=== PATIENT | male | born 1975 | race American Indian/Alaskan Native ===

== ENCOUNTER 2016-09-16 12:44 | Emergency (ER) | payer OTHER ==
[2016-09-16] MEDS ORDERED: FLEXERIL PO ONE (17:33)
[2016-09-16] MEDS ORDERED: TORADOL IM ONE (17:33)
[2016-09-16 17:59] VITALS: BP 134/78
--- NOTE | 2016-09-16 18:23 | Emergency Department Report ---
HPI - General Chief Complaint: Extremity Problem,Nontraumatic Time Seen by Provider: 09/16/16 17:32 - HPI HPI: 41-year-old male presents today with lower back pain radiating down his right leg times one month. Denies history of similar symptoms. Denies injury or trauma. Patient states that his job requires lifting and that may be associated. Describes his pain as 8 out of 10 constant, throbbing ache. Denies bowel or bladder incontinence. Denies numbness, weakness, paresthesias. He tried ibuprofen with relief. Denies fever, chills, nausea, vomiting, chest pain, shortness of breath, abdominal pain, urinary symptoms. ED Past Medical Hx - Past Medical History Previous Medical History?: No - Surgical History Past Surgical History?: No - Social History Smoking Status: Never Smoker Substance Use Type: Alcohol - Medications Home Medications: Home Medications Medication Instructions Recorded Confirmed Last Taken Type Cyclobenzaprine [Flexeril] 10 mg PO TID PRN #20 tablet 09/16/16 Unknown Rx Naproxen [Naprosyn] 500 mg PO BID #30 tablet 09/16/16 Unknown Rx ED Review of Systems ROS: Stated complaint: SEVERE IN RIGHT LEG Other details as noted in HPI Constitutional: denies: chills, fever, malaise Eyes: denies: eye pain ENT: denies: ear pain, throat pain, congestion Respiratory: denies: cough, shortness of breath, wheezing Cardiovascular: denies: chest pain, palpitations Endocrine: no symptoms reported Gastrointestinal: denies: abdominal pain, nausea, vomiting Musculoskeletal: back pain Neurological: denies: headache, weakness, numbness, paresthesias Physical Exam - Physical Exam Vital Signs: Vital Signs 09/16/16 09/16/16 13:00 17:00 Temperature 97.5 F L 98.6 F Pulse Rate 60 78 Respiratory 18 15 Rate Blood Pressure 130/84 Blood Pressure 134/78 [Left] O2 Sat by Pulse 100 99 Oximetry Physical Exam: GENERAL: The patient is well-developed and well-nourished. Patient is in NAD. HEAD: Normocephalic. Atraumatic. CHEST/LUNGS: Clear to auscultation throughout. HEART/CARDIOVASCULAR: Regular rate and rhythm. No murmurs, rubs or gallops. ABDOMEN: Abdomen is soft, nontender. Bowel sounds normoactive. No guarding or rebound tenderness. Negative for CVA tenderness bilaterally. BACK: Full ROM. No midline or paraspinal tenderness to palpation. Tenderness to palpation of the right sciatic notch. Negative straight leg raise bilaterally. RIGHT LOWER EXTREMITY: Full range of motion. No tenderness to palpation. Peripheral pulses intact. Capillary refill less than 2 seconds. EXTREMITIES:Peripheral pulses intact. Capillary refill less than 2 seconds. NEURO: Alert and oriented x 3. Normal gait. ED Course Vital Signs 09/16/16 09/16/16 13:00 17:00 Temperature 97.5 F L 98.6 F Pulse Rate 60 78 Respiratory 18 15 Rate Blood Pressure 130/84 Blood Pressure 134/78 [Left] O2 Sat by Pulse 100 99 Oximetry ED Medical Decision Making - Lab Data Vital Signs 09/16/16 09/16/16 13:00 17:00 Temperature 97.5 F L 98.6 F Pulse Rate 60 78 Respiratory 18 15 Rate Blood Pressure 130/84 Blood Pressure 134/78 [Left] O2 Sat by Pulse 100 99 Oximetry - Medical Decision Making 41-year-old male presents today with right-sided lower back pain radiating down his right leg. Patient was given Flexeril and Toradol and reports some symptomatic relief. Patient is in no acute distress at this time. He will be discharged home and is encouraged to follow up with a primary care provider. He will be sent home on Flexeril and Naprosyn and is encouraged to return to the emergency room for any worsening symptoms. Critical care attestation.: If time is entered above; I have spent that time in minutes in the direct care of this critically ill patient, excluding procedure time. ED Disposition Clinical Impression: Sciatica Qualifiers: Laterality: right Qualified Code(s): M54.31 - Sciatica, right side Disposition: DISCHARGED TO HOME OR SELFCARE Is pt being admited?: No Does the pt Need Aspirin: No Condition: Stable Instructions: Sciatica (ED) Additional Instructions: Follow-up with primary care provider. Return to the emergency department if symptoms worsen. Prescriptions: Cyclobenzaprine [Flexeril] 10 mg PO TID PRN #20 tablet PRN Reason: Muscle Spasm Naproxen [Naprosyn] 500 mg PO BID #30 tablet Referrals: GRACE HUTSON MD [Primary Care Provider] - 3-5 Days LUCINDA MEYERS MD [Staff Physician] - 3-5 Days [facility] [Outside] - 3-5 Days Forms: Work/School Release Form(ED), Accompanied Note Time of Disposition: 18:23
== END 2016-09-16 18:41 | disposition home or self-care (01) ==
LOC: ED 12:44
DX: M54.31 Sciatica, right side (principal)
CPT/HCPCS: 96372; 99282; J1885